=== PATIENT | female | born 2000 | race Hispanic/Latino ===

== ENCOUNTER 2022-03-12 19:10 | Emergency (ER) | payer BC ==
[2022-03-12] MEDS ORDERED: Acetaminophen 500 MG TAB ONE (20:40)
[2022-03-12 22:28] LABS: SARS-CoV-2 NAA Rapid Test Not Detected (NotDetected)
== END 2022-03-12 23:03 | disposition home or self-care (01) ==
LOC: ERS 19:10
DX: B34.9 Viral infection, unspecified (principal); Z20.822 Contact with and (suspected) exposure to COVID-19
CPT/HCPCS: 71046